=== PATIENT | male | born 1965 | race Caucasian/White ===

== ENCOUNTER → 2020-10-23 | Outpatient (CLI) | payer OTHER ==
[~2020-10-23] MED LIST: ACID CONTROL150 MG PO; ASPIRIN CHEWABL81 MG PO; CRESTOR20 MG PO; ESCITALOPRAM OX10 MG PO; FARXIGA5 MG PO; GLIPIZIDE ER2.5 MG PO; GLIPIZIDE ER5 MG PO; GLUCOPHAGE850 MG PO; LORTAB 7.5-3251 EACH PO; MOBIC7.5 MG PO; NEURONTIN300 MG PO; NORVASC10 MG PO; PRAVASTATIN SOD20 MG PO; TIZANIDINE HCL2 MG PO; TRADJENTA5 MG PO; TRULICITY1.5 MG/0.5 SQ; VIBRAMYCIN100 MG PO; ZESTRIL40 MG PO
[2020-10-23 11:18] LABS: HEMOGLOBIN 16.1 gm/dl (14.0-17.5); RED BLOOD COUNT 5.02 M/UL (4.20-5.50); WHITE BLOOD COUNT 12.6 K/UL (4.5-11.0)
[2020-10-23 11:35] LABS: BUN/CREATININE RATIO 25 (0-10)
== END ==
LOC: OPSV2 10:00 → EDSTATUS 10:00 → OPSV2 10:19
PROVIDERS: Orthopaedic Surgery
DX: Z01.818 Encounter for other preprocedural examination (principal); M16.11 Unilateral primary osteoarthritis, right hip; I45.10 Unspecified right bundle-branch block
CPT/HCPCS: 36415; 80048; 81001; 83036; 85025; 87081; 93005

== ENCOUNTER → 2020-10-31 | Outpatient (CLI) | payer OTHER ==
[~2020-10-31] MED LIST changes: +GLUCOPHAGE 500500 MG PO; -GLUCOPHAGE850 MG PO
== END ==
LOC: HEART 5 13:55
DX: I35.0 Nonrheumatic aortic (valve) stenosis (principal)
CPT/HCPCS: 93306

== ENCOUNTER → 2020-11-23 | Outpatient (CLI) | payer OTHER ==
[2020-11-23 13:42] LABS: RED BLOOD COUNT 4.69 M/UL (4.20-5.50); WHITE BLOOD COUNT 11.2 K/UL (4.5-11.0)
[2020-11-23 13:58] LABS: BUN/CREATININE RATIO 21 (0-10)
== END ==
LOC: LAB 13:14
PROVIDERS: Internal Medicine Interventional Cardiology
DX: I35.0 Nonrheumatic aortic (valve) stenosis (principal); R07.9 Chest pain, unspecified; R53.83 Other fatigue; I10 Essential (primary) hypertension; E78.5 Hyperlipidemia, unspecified; E11.9 Type 2 diabetes mellitus without complications
CPT/HCPCS: 36415; 80048; 85025; 85610; 85730

== ENCOUNTER → 2020-12-10 | Outpatient (CLI) | payer OTHER | LOC: CATH 08:13 | DX: I25.118 Atherosclerotic heart disease of native coronary artery with other forms of angina pectoris (principal); I35.0 Nonrheumatic aortic (valve) stenosis; I42.2 Other hypertrophic cardiomyopathy; I11.9 Hypertensive heart disease without heart failure; E11.9 Type 2 diabetes mellitus without complications; E78.5 Hyperlipidemia, unspecified; F17.200 Nicotine dependence, unspecified, uncomplicated; Z20.822 Contact with and (suspected) exposure to COVID-19 | CPT/HCPCS: 99152; 99153; C1769; C1894; J1644; J2250; J3010; J7040; Q9967 ==

== ENCOUNTER → 2021-03-18 | Outpatient (CLI) | payer OTHER ==
[~2021-03-18] MED LIST changes: -GLUCOPHAGE 500500 MG PO; +GLUCOPHAGE 850850 MG PO; +METOPROLOL TART25 MG PO
[2021-03-18 11:46] LABS: HEMOGLOBIN 15.8 gm/dl (14.0-17.5); RED BLOOD COUNT 4.86 M/UL (4.20-5.50); WHITE BLOOD COUNT 16.2 K/UL (4.5-11.0)
[2021-03-18 12:09] LABS: BUN/CREATININE RATIO 27 (0-10)
== END ==
LOC: EDSTATUS 10:30 → OPSV2 10:30
PROVIDERS: Orthopaedic Surgery
DX: Z01.818 Encounter for other preprocedural examination (principal); M16.11 Unilateral primary osteoarthritis, right hip
CPT/HCPCS: 71046; 80048; 83036; 85025; 93005

== ENCOUNTER → 2021-04-01 | Outpatient (CLI) | payer OTHER ==
[~2021-04-01] MED LIST changes: +ASPIRIN EC81 MG PO; +ENDOCET 7.5-321 EACH PO
[2021-04-01 15:21] LABS: BUN/CREATININE RATIO 25 (0-10)
== END ==
LOC: LAB 13:22
PROVIDERS: Orthopaedic Surgery
DX: Z01.812 Encounter for preprocedural laboratory examination (principal)
CPT/HCPCS: 36415; 80048; 86850; 86900; 86901

== ENCOUNTER 2021-04-02 08:58 | Inpatient (IN) | payer OTHER ==
[~2021-04-02] VITALS: Ht 170.2 cm; Wt 88.9 kg
[~2021-04-02 08:58] MED LIST changes: -ASPIRIN EC81 MG PO; -ENDOCET 7.5-321 EACH PO
[2021-04-02 09:43] LABS: HEMOGLOBIN 14.5 gm/dl (14.0-17.5); RED BLOOD COUNT 4.6 M/UL (4.20-5.50); WHITE BLOOD COUNT 12.1 K/UL (4.5-11.0)
[2021-04-02] MEDS ORDERED: ENDOCET 7.5-321 EACH PO (13:59)
[2021-04-02] MEDS ORDERED: ASPIRIN EC81 MG PO (13:59)
--- NOTE | 2021-04-03 05:32 | NUR ---
AFTER PT GOT INTO BED AT 2300 WITH ASSISTANCE FROM PRIMARY RN AND SCREW MACHINE SET UP OPERATOR, POLAR ICE WAS APPLIED TO RIGHT HIP. PT WORE POLAR ICE CONTINUOUSLY FOR ENTIRE SHIFT THEREAFTER. ICE WAS REFILLED AT 2300 AND 0500.
[2021-04-03 06:16] LABS: HEMOGLOBIN 11.5 gm/dl (14.0-17.5); RED BLOOD COUNT 3.68 M/UL (4.20-5.50); WHITE BLOOD COUNT 17.3 K/UL (4.5-11.0)
[2021-04-03 06:52] LABS: BUN/CREATININE RATIO 23 (0-10)
--- NOTE | 2021-04-03 14:02 | NUR ---
patient reported he ambulates using walker with assistance from PT on the hallway and able to and tolerated well.
== END 2021-04-03 14:51 | disposition home or self-care (01) | DRG 470 ==
LOC: OR 08:58 → M/S 08:59 → EDSTATUS 12:00 → OR 12:00 → M/S 17:26 → OR 17:26 → M/S 04-03 14:51
PROVIDERS: ADMIT Orthopaedic Surgery
PROC: 0SR903A Replacement of Right Hip Joint with Ceramic Synthetic Substitute, Uncemented, Open Approach (ICD-10-PCS; principal; 2021-04-02 12:00)
DX: M16.0 Bilateral primary osteoarthritis of hip (principal); I42.2 Other hypertrophic cardiomyopathy; Z20.822 Contact with and (suspected) exposure to COVID-19; I10 Essential (primary) hypertension; E78.5 Hyperlipidemia, unspecified; I25.10 Atherosclerotic heart disease of native coronary artery without angina pectoris; F41.9 Anxiety disorder, unspecified; I45.10 Unspecified right bundle-branch block; I35.0 Nonrheumatic aortic (valve) stenosis; E11.9 Type 2 diabetes mellitus without complications; F17.210 Nicotine dependence, cigarettes, uncomplicated; Z79.4 Long term (current) use of insulin; Z90.49 Acquired absence of other specified parts of digestive tract; Z82.49 Family history of ischemic heart disease and other diseases of the circulatory system; Z79.82 Long term (current) use of aspirin; Z28.21 Immunization not carried out because of patient refusal
CPT/HCPCS: 36415; 73501; 73502; 76000; 80048; 82962; 85027; 97110-GP-CQ; 97116-GP-CQ; 97161; 97166; 97535; C1776; J0690; J1100; J1170; J2001; J2250; J2270; J2370; J2405; J2704; J2795; J3010; J3370; J7050; J7120